=== PATIENT | female | born 1995 | race Caucasian/White ===

== ENCOUNTER 2016-10-25 16:37 | Emergency (ER) | payer BC ==
[2016-10-25 16:49] VITALS: TEMP 97.5
[2016-10-25] MEDS ORDERED: IBUPROFEN 600 MG TAB PO ONE (17:00)
[2016-10-25] MEDS ORDERED: ONDANSETRON DISINTEGRATING 4 MG TAB PO ONE (17:24)
[2016-10-25] MEDS ORDERED: OXYCODONE/APAP 5/325 TAB PO ONE (17:24)
--- NOTE | 2016-10-25 17:24 | EDPHY ---
H & P Smoking Status: Never smoked Time Seen by Provider: 10/25/16 17:23 HPI/ROS: CHIEF COMPLAINT: Right shoulder pain HISTORY OF PRESENT ILLNESS: 21-year-old female arrives via private vehicle after she was snowboarding, fell and hyper abducted and externally rotated her right arm. Complaining of immediate pain. No prior history of shoulder dislocation. No paresthesia. No head injury. No other injury. PHYSICAL EXAM (Prior to examination, patient consented to physical exam, hands were washed and my usual and customary physical exam procedures followed) 1) GENERAL: Well-developed, well-nourished, alert and oriented. Appears uncomfortable, guarding right upper extremity . 2) HEAD: Normocephalic 3) HEENT: Pupils equal, round, reactive to light bilaterally. 4) LUNGS: Breathing comfortably. 5) MUSCULOSKELETAL: right upper extremityAnterior fullness lateral step-off consistent with anterior dislocation. Soft compartments. Normal coloration.Soft compartments 6) SKIN: Intact 7) VASCULAR: pulses and cap refill present are brisk 8) NEUROLOGIC: Radial, ulnar, median nerve function intact with no deficits appreciated on exam DIFFERENTIAL DIAGNOSIS: in no particular order including but not limited to fracture, sprain, compartment syndrome, dislocation (Jamaica Ramos) Constitutional: Initial Vital Signs Temperature (C) 36.4 C 10/25/16 16:46 Heart Rate 78 10/25/16 16:46 Respiratory Rate 20 10/25/16 16:46 Blood Pressure 146/102 H 10/25/16 16:46 O2 Sat (%) 98 10/25/16 16:46 O2 Delivery Mode Room Air Allergies/Adverse Reactions: No Known Allergies Allergy (Verified 04/30/13 21:34) Home Medications: Medication Instructions Recorded No Medications [No Meds] 04/30/13 oxyCODONE/APAP 5/325 [Percocet 1 tab PO Q6 #10 tab 10/25/16 5/325] MDM/Departure - MDM Diagnostics: Right shoulder, 2 views. History: Pain after fall on snowboard. Findings: There is anterior dislocation of the right humerus at the glenohumeral joint. Humeral head is at the anterior margin of the glenoid. Normal mineralization. No evidence for acute fracture. Impression: Anterior dislocation right shoulder. Dictated By: Aristeo Fang MD (Jamaica Ramos) Procedures: Procedure: Dislocation reduction. . The dislocation of the right shoulder was reduced using amodified Hannah technique without complications. Post reduction the patient's neurovascular exam is normal. Post reduction x-ray demonstrates reduction of the joint to the anatomic position. The procedure was performed by myself. Procedure: Splint sling splint was applied by ER relay technician. After application of the splint I returned and re-examined the patient. The splint was adequately immobilizing the joint and distal to the splint the patient's circulation and sensation were intact. Patient shows no signs of compartment syndrome. Was given orthopedic precautions. (Jamaica Ramos) Medications Given: Discontinued Medications Ibuprofen (Motrin) 600 mg PO EDNOW ONE Stop: 10/25/16 17:01 Last Admin: 10/25/16 17:01 Dose: 600 mg Ondansetron HCl (Zofran Odt) 4 mg PO EDNOW ONE Stop: 10/25/16 17:25 Last Admin: 10/25/16 17:28 Dose: 4 mg Oxycodone/Acetaminophen (Percocet 5/325) 2 tab PO EDNOW ONE Stop: 10/25/16 17:25 Last Admin: 10/25/16 17:28 Dose: 2 tab Oxycodone/Acetaminophen (Percocet 5/325mg Prepack#4) 1 btl TAKEHOME EDNOW ONE Stop: 10/25/16 17:44 Last Admin: 10/25/16 17:46 Dose: 1 btl ED Course/Re-evaluation: I did not see this patient while she was in the emergency department. However her care was discussed with the PA while the patient was in the department. I agree with treatment plan and management (Giovanny Matrinez) - Depart Disposition: Home, Routine, Self-Care Clinical Impression: Shoulder dislocation Qualifiers: Encounter type: initial encounter Laterality: right Qualified Code(s): S43.004A - Unspecified dislocation of right shoulder joint, initial encounter Condition: Good Instructions: Oxycodone/Acetaminophen (By mouth), Shoulder Dislocation (ED) Additional Instructions: Return to the ER immediately if you experience discoloration, have worsening pain, numbness, tingling, or any other symptoms that concern you. If you received x-rays in the emergency department today, be advised, that ligamentous , tendon, muscular, and other non-bony injury cannot be fully ruled out. Try to keep your affected extremity elevated above the level of your chest, and keep cold packs on the affected area, for the next 48 hours. Prescriptions: oxyCODONE/APAP 5/325 [Percocet 5/325] 1 tab PO Q6 #10 tab Referrals: Prince Berg MD [Medical Doctor] - 2-3 days, call for appt.
[2016-10-25] MEDS ORDERED: OXYCODONE/APAP 5/325 TAB ONE (17:25)
[2016-10-25] MEDS ORDERED: OXYCODONE/APAP 5/325MG PREPACK#4 BTL TAKEHOME ONE (17:43)
[2016-10-25 17:55] VITALS: BP 149/78; PULSE 81; RESP 16; O2SAT 94
== END 2016-10-25 17:55 | disposition home or self-care (01) ==
PROC: 0RSJXZZ Reposition Right Shoulder Joint, External Approach (ICD-10-PCS; principal; 2016-10-25)
DX: S43.014A Anterior dislocation of right humerus, initial encounter (principal); V00.311A Fall from snowboard, initial encounter; Y99.8 Other external cause status; Y93.23 Activity, snow (alpine) (downhill) skiing, snowboarding, sledding, tobogganing and snow tubing
CPT/HCPCS: A4565